=== PATIENT | female | born 1985 | race Caucasian/White ===

== ENCOUNTER 2017-09-29 17:18 | Inpatient (IN) | payer MEDICAID ==
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
[2017-09-29] MEDS ORDERED: chlordiazePOXIDE 25 MG CAP PO ONE (17:35)
[2017-09-29] MEDS ORDERED: LORazepam 1 MG TAB PO ONE (17:35)
[2017-09-29 17:58] LABS: PLATELET COUNT 294 10^3/uL (150-400)
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
--- NOTE | 2017-09-29 23:46 | ASMTTCLDSP ---
TLC Discharge Disposition Disposition: Answers: Admit Disposition Notes: Notes: In consultation with ED Physician Gabby Doyle MD and on-call Psychiatrist Esequiel Gavin MD, both concurred pt.'s appears to meet 27-65 criteria requiring inpatient psychiatric hospitalizations as pt. appears to be an imminent risk to self due to a mental condition. Pt was given [facility] prohibited belongings list while in the ED. For inpatient Esequiel Gavin admission, the following psychiatrist agreed to accept patient for admission to [facility] ([facility]): Hold initiated by: Answers: Other Notes: Assisted clincial staff. Date Signed: 09/29/2017 11:45 PM Electronically Signed By:Alysha Lance
[2017-09-30] MEDS ORDERED: MAGNESIUM HYDROXIDE 30 ML UDCUP PO PRN (00:13)
[2017-09-30] MEDS ORDERED: NICOTINE POLACRILEX 2 MG GUM B PRN (00:13)
[2017-09-30] MEDS ORDERED: MAG HYDROX/AL HYDROX/SIMETH 30 ML UDCUP PO PRN (00:13)
[2017-09-30] MEDS ORDERED: THIAMINE HCL 100 MG TAB PO ONE (00:17)
[2017-09-30] MEDS ORDERED: PROMETHAZINE HCL 25 MG SUPPR PR PRN (00:17)
[2017-09-30] MEDS ORDERED: chlordiazePOXIDE 25 MG CAP PO PRN (00:17)
[2017-09-30] MEDS ORDERED: chlordiazePOXIDE 25 MG CAP PO ONE (00:24)
[2017-09-30] MEDS: PROMETHAZINE HCL 25 MG TAB PO PRN ×2 (00:45→13:18)
[2017-09-30] MEDS: OLANZapine DISINTEGR 10 MG TAB PO PRN ×2 (00:45→22:53)
[2017-09-30] MEDS: IBUPROFEN 200 MG TAB PO PRN ×2 (00:45→13:20)
[2017-09-30] MEDS: FOLIC ACID 1 MG TAB PO SCH (09:18)
[2017-09-30] MEDS: chlordiazePOXIDE 25 MG CAP PO SCH ×3 (09:18→21:15)
[2017-09-30] MEDS: THIAMINE HCL 100 MG TAB PO SCH (09:18)
[2017-09-30] MEDS: MULTIVITAMINS 1 EACH TAB PO SCH (09:18)
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
--- NOTE | 2017-09-30 13:54 | ASMTCMCOM ---
CM Note CM Note Notes: Pt. and CC complete MTP. Pt. stated she has been from her for the past 7 months. Pt. stated HOC lives in [place]. Pt. stated she was hospitalized in August for mental health reasons. Pt. stated she normally has two jobs, but recently lost one and is in the process of trying to get it back. Pt. stated she has no place to stay and no family in state who are willing to help her. Pt. stated she was pulled off all of her medication 5 years ago and pt. started drinking to deal with her anxiety. Pt. stated she has assault and domestic violence charges and is on probation Pt. stated she has stopped all substance use because of her probation Pt. stated she has SI, "like to just end it", adding she contracts for safety. Pt. denied HI, AVH and paranoia. Pt. stated she has a history of night terrors adding "almost like hallucinating". Pt. stated she has vivid dreams and has been known to sleep walk and hit and kick in her sleep. Pt. rated her anxiety 09/14 and "sadness" 12/15. Date Signed: 09/30/2017 01:53 PM Electronically Signed By:Ceci Gonsalez
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
[2017-09-30] MEDS: hydrOXYzine HCL 25 MG TAB PO PRN ×2 (14:43→21:40)
[2017-09-30] MEDS: FLUoxetine 20 MG CAP PO SCH ×3 (14:49→21:15)
[2017-09-30] MEDS ORDERED: chlordiazePOXIDE 25 MG CAP PO SCH (16:00)
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
--- NOTE | 2017-09-30 17:53 | PDMN ---
Medical Necessity Medical necessity: Pt meets inpt criteria per MD order and [facility], Major Depressive Disorder, Adult: Inpatient Care, 3 days. Pt admitted involuntarily on M1 Hold due to being danger to herself and others, major depressive disorder , PTSD, alcohol use disorder; requires hospitalization for safety, crisis stabilization, and medication evaluation, anticipate >2MN.
[2017-09-30] MEDS: PRAZOSIN HCL 1 MG CAP PO SCH (21:15)
[2017-10-01] MEDS: FOLIC ACID 1 MG TAB PO SCH (08:43)
[2017-10-01] MEDS: chlordiazePOXIDE 25 MG CAP PO SCH ×3 (08:43→20:36)
[2017-10-01] MEDS: MULTIVITAMINS 1 EACH TAB PO SCH (08:43)
[2017-10-01] MEDS: THIAMINE HCL 100 MG TAB PO SCH (08:43)
[2017-10-01] MEDS: hydrOXYzine HCL 25 MG TAB PO PRN ×2 (08:49→13:41)
--- NOTE | 2017-10-01 11:12 | SOAPPROG ---
SOAP Progress Note Assessment/Plan: Assessment: Major depressive disorder. R/O Borderline personality disorder. No improvement noted. (see subjective/objective note). Patient is not safe to discharge at this time as patient continues to exhibit signs of severe depression, and express severe depression symptoms; expresses SI. Patient requires continued inpatient care because of current depression, and requires inpatient level of care to stabilize in order to no longer be a danger to self due to mental illness. Patient could benefit from continued inpatient hospitalization for crisis stabilization, safety, and medication evaluation. Plan: Review psychotropic medication treatment informed consent and recommendations. After reviewing options, risk and benefits, patient agrees to continue current medications. No medication changes at this time as more time is needed to determine ongoing tolerability and efficacy. Plan is to continue to observe patient for response and side effects from medications, and ongoing monitoring and evaluation. Next steps are for patient to meet with managed care nurse to plan a safe discharge plan and establish outpatient services for ongoing treatment. Consider discharge next week if patient is in stable condition, safe, and has a safe discharge plan. PSYCHOTROPIC MEDICATION TREATMENT INFORMED CONSENT and RECOMMENDATIONS: Review nature of condition, diagnosis, and prognosis. Review nature and purpose of psychotropic medication treatment. Review type of psychotropic medications being ordered. Review risk and benefits of psychotropic medication treatment. Review probable length of time patient will need to take medications. Review risk and benefits of not undergoing psychotropic medication treatment. Review alternative treatments to psychotropic medications. Review psychotropic medications contraindications, drug-drug interactions, side effects, and importance of reporting any side effects to a psychiatric provider or nurse during inpatient hospitalization, and upon discharge to patients psychiatric outpatient provider, primary care provider, or other health manager critical care. Review importance of asking a nurse, psychiatric provider, or primary care provider any questions or problems concerning the psychotropic medications. Verify patient understands the information that has been provided, and understands, accepts, and agrees to psychotropic medications. Review patients safety plan and importance of patient to report to staff while hospitalized if patient is ever a danger to self/others, or unable to care for self, and upon discharge, the importance for patient to contact [facility] or [facility], or go to the nearest emergency room, if patient is ever a danger to self/others, or unable to care for self. Recommend that upon discharge patient establish medication management treatment with a psychiatric provider, establishes routine therapy appointments, and follow-up with primary care provider. Verify patient understands and agrees to these recommendations. 10/01/17 11:14 Subjective: Following up with patient for evaluation of depression and safety. Patient reports, "I do not have anywhere to go when I leave here, I have nothing left." Patient expresses the following psychiatric symptoms: sad, hopeless, depressed. Patient does not report undesirable side effects from the medications. Patient reports appetite as normal, and reports eating all meals. Patient describes getting 10 hours of sleep. Patient reports SI, with high intent, no plan. Patient denies HI. Objective: Vital Signs Temp Pulse Resp BP Pulse Ox 37.0 C 104 H 16 117/74 97 10/01/17 06:00 10/01/17 06:00 10/01/17 06:00 10/01/17 06:00 10/01/17 06:00 NURSING REPORT: Consulted with nursing for update on patients progress in treatment. Nurses report patient is engaged in treatment, is attending groups, slept 10 hours, expresses the following psychiatric symptoms: sad, depressed mood, exhibits the following psychiatric symptoms: depressed, withdrawn, flat; is eating all meals, is taking medications as prescribed with no report of side effects, with no s/s of EPS/akathisia, and denies SI/HI, A/V hallucinations. PAROLE HEARING OFFICER UPDATE: working to set-up outpatient services for [facility] in [place], and referrals for homeless shelters. The patient is a well-nourished female looking older than chronological age. Attire is appropriate and dress is casual. Grooming status is inappropriate and disheveled. Ambulation is independent. Gait is normal and coordinated. Posture is normal and relaxed. Eye contact is inappropriate, and little. Motor activity is appropriate with purposeful, organized, coordinated movements ; with no involuntary movements. Attitude is cooperative. Patient appears attentive and relates well to this interviewer. Language production is spontaneous. R/R/V normal. Articulation is clear. Patient reports mood as sad with congruent affect. Patients thought process is linear and logical, with no loose associations, tangential thought, thought blocking, concrete thinking, or any other signs of formal thought disorder. Patient does report suicidal thoughts, ideas, or plans. Patient does not report homicidal thoughts , ideas, or plans. Patient denies auditory, visual hallucinations. Patient denies delusions. Patient does not appear to be attending to internal stimuli. Patients attention and concentration are poor. Patient is oriented to person , place, time, and situation. Patients insight is poor. Patients judgment is poor. No evidence of gross cognitive dysfunction at any point during the interview. No evidence of apparent dysfunction in recent or remote memory. - Time Spent With Patient Time Spent With Patient: 30 minutes, met with patient individually and with treatment team. - Pending Discharge Pending Discharge Within 24 Hours: No Pending Discharge Within 48 Hours: No ICD10 Worksheet Patient Problems: Problems Problem Status Onset Alcohol use disorder, severe, in controlled environment Acute Major depression Acute
--- NOTE | 2017-10-01 12:41 | ASMTCMCOM ---
CM Note CM Note Notes: The patient would prefer to return to [place] upon discharge to be with her , Juan M Shetty ([phone]). CC spoke with Juan M and he reported feeling "very concerned that there is a possibility she would discharge to the street." He reported that although he would like to participate in her care there is very little he can do from [place], apart from "quitting my job and moving here to be homeless with her." He reported that he could provide her with a "plane ticket to [place]" and "safety, halfway, and stability." He would like to be updated per her disposition. Date Signed: 10/01/2017 12:41 PM Electronically Signed By:Julianna Silveira
[2017-10-01] MEDS: IBUPROFEN 200 MG TAB PO PRN (13:41)
--- NOTE | 2017-10-01 14:10 | ASMTBHDC ---
Notes Note: Notes: Follow Up: [facility] [address] Floor, [address] [place] [address] Sunday 10/08 @ 1:00pm Dr. Bravo [address] [place] [id number] Appt: October 07 (10/07/17) at 8:30am (check in time at 8:15am) Group Therapy with Kirsten [address] [phone] Must coordinate entry to homeless [facility] prior to discharge [facility] [address] [phone] Must arrive prior to 3:30pm Date Signed: 10/01/2017 10:54 AM Electronically Signed By:Julianna Silveira
[2017-10-01] MEDS: OLANZapine DISINTEGR 10 MG TAB PO PRN (20:36)
[2017-10-01] MEDS: FLUoxetine 20 MG CAP PO SCH (20:36)
[2017-10-01] MEDS: PRAZOSIN HCL 1 MG CAP PO SCH (20:36)
[2017-10-02] MEDS: THIAMINE HCL 100 MG TAB PO SCH (08:25)
[2017-10-02] MEDS: FOLIC ACID 1 MG TAB PO SCH (08:25)
[2017-10-02] MEDS: MULTIVITAMINS 1 EACH TAB PO SCH (08:25)
[2017-10-02] MEDS: hydrOXYzine HCL 25 MG TAB PO PRN ×2 (11:54→21:32)
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
[2017-10-02] MEDS: FLUoxetine 20 MG CAP PO SCH (21:29)
[2017-10-02] MEDS: PRAZOSIN HCL 1 MG CAP PO SCH (21:29)
[2017-10-02] MEDS: OLANZapine DISINTEGR 10 MG TAB PO PRN (21:32)
[2017-10-03] MEDS: OLANZapine DISINTEGR 10 MG TAB PO PRN ×2 (06:36→20:37)
[2017-10-03] MEDS: hydrOXYzine HCL 25 MG TAB PO PRN ×3 (06:36→20:37)
--- NOTE | 2017-10-03 09:07 | ASMTCMCOM ---
CM Note CM Note Notes: Please disregard the TLC Progress Note--CC intended to complete a CM note. CC supported the patient with research regarding the civil standby process through [facility]. The patient has all the pertinent information including the phone number. Civil standbys are low priority, maximum of 20 minutes on the residence, and PO will not dispute property. The patient reported decreased suicidal ideation since being on the unit, she stated "if I were in the streets I would shoot right back up to a 10" on the suicide scale due to the anxiety and hopelessness. The patient endorsed feeling anxiety and depression. She denied A/VH and HI. Date Signed: 10/03/2017 09:07 AM Electronically Signed By:Julianna Silveira
[2017-10-03] MEDS: MULTIVITAMINS 1 EACH TAB PO SCH (12:24)
[2017-10-03] MEDS: FOLIC ACID 1 MG TAB PO SCH (12:24)
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
[2017-10-03] MEDS: FLUoxetine 20 MG CAP PO SCH (20:37)
[2017-10-03] MEDS: PRAZOSIN HCL 1 MG CAP PO SCH (20:37)
[2017-10-03] MEDS: traZODone 50 MG TAB PO PRN (22:42)
[2017-10-04] MEDS: FOLIC ACID 1 MG TAB PO SCH (08:41)
[2017-10-04] MEDS: MULTIVITAMINS 1 EACH TAB PO SCH (08:41)
--- NOTE | 2017-10-04 09:13 | SOAPPROG ---
SOAP Progress Note Assessment/Plan: Assessment: Major depressive disorder. R/O Borderline personality disorder. Improvement noted; patient no longer reporting SI or self-injurious ideation. (see subjective/objective note). Patient is not safe to discharge at this time as patient continues to exhibit signs of depression, and express depression symptoms. Patient requires continued inpatient care because of current depression, and requires inpatient level of care to stabilize in order to no longer be a danger to self due to mental illness. Patient could benefit from continued inpatient hospitalization for crisis stabilization, safety, and medication evaluation. Plan: Review psychotropic medication treatment informed consent and recommendations. After reviewing options, risk and benefits, patient agrees to continue current medications. No medication changes at this time as more time is needed to determine ongoing tolerability and efficacy. Plan is to continue to observe patient for response and side effects from medications, and ongoing monitoring and evaluation. Next steps are for patient to meet with childcare center director to plan a safe discharge plan and establish outpatient services for ongoing treatment. Consider discharge Wednesday if patient is in stable condition, safe, and has a safe discharge plan. PSYCHOTROPIC MEDICATION TREATMENT INFORMED CONSENT and RECOMMENDATIONS: Review nature of condition, diagnosis, and prognosis. Review nature and purpose of psychotropic medication treatment. Review type of psychotropic medications being ordered. Review risk and benefits of psychotropic medication treatment. Review probable length of time patient will need to take medications. Review risk and benefits of not undergoing psychotropic medication treatment. Review alternative treatments to psychotropic medications. Review psychotropic medications contraindications, drug-drug interactions, side effects, and importance of reporting any side effects to a psychiatric provider or nurse during inpatient hospitalization, and upon discharge to patients psychiatric outpatient provider, primary care provider, or other health veterinarian laboratory animal care. Review importance of asking a nurse, psychiatric provider, or primary care provider any questions or problems concerning the psychotropic medications. Verify patient understands the information that has been provided, and understands, accepts, and agrees to psychotropic medications. Review patients safety plan and importance of patient to report to staff while hospitalized if patient is ever a danger to self/others, or unable to care for self, and upon discharge, the importance for patient to contact [facility] or [facility], or go to the nearest emergency room, if patient is ever a danger to self/others, or unable to care for self. Recommend that upon discharge patient establish medication management treatment with a psychiatric provider, establishes routine therapy appointments, and follow-up with primary care provider. Verify patient understands and agrees to these recommendations. 10/04/17 09:16 Subjective: Following up with patient for evaluation of depression and safety. Patient reports, "Making progress in regard to my plans for the next couple weeks after discharging." Patient expresses the following psychiatric symptoms: moderate anxiety, sadness. Patient reports, "Medications are helping." Patient reports good response from Zyprexa Zydis 5 mg po HS for sleep and depression symptoms. Patient does not report undesirable side effects from the medications. Patient reports appetite as normal, and reports eating all meals. Patient describes getting 10 hours of sleep. Patient denies no SI/HI. Patient requests discharge this week. Patient describes plan to eventually move to [place] where her currently resides. Objective: Vital Signs Temp Pulse Resp BP Pulse Ox 36.4 C 80 14 105/64 96 10/04/17 06:00 10/04/17 06:00 10/04/17 06:00 10/04/17 06:00 10/04/17 06:00 NURSING REPORT: Consulted with nursing for update on patients progress in treatment. Nurses report patient is engaged in treatment, is attending groups, slept 10 hours, expresses the following psychiatric symptoms: sad, depressed mood, exhibits the following psychiatric symptoms: depressed and anxious; is eating all meals, attending to ADLs, is taking medications as prescribed with no report of side effects, with no s/s of EPS/akathisia, and denies SI/HI, denies A/V hallucinations, and denies delusions. 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 REPORT: No w/d sxs. Off Librium. Can d/c [facility]. Patient requested to d/c so she can meet with PO and public relations account executive. Patients in [place] wants her to join him there in rehab. The patient is a well-nourished female looking older than chronological age. Attire is appropriate and dress is casual. Grooming status is inappropriate and disheveled. Ambulation is independent. Gait is normal and coordinated. Posture is normal and relaxed. Eye contact is inappropriate, and little. Motor activity is appropriate with purposeful, organized, coordinated movements ; with no involuntary movements. Attitude is cooperative. Patient appears attentive and relates well to this interviewer. Language production is spontaneous. R/R/V normal. Articulation is clear. Patient reports mood as anxious and sad with congruent affect. Patients thought process is linear and logical, with no loose associations, tangential thought, thought blocking, concrete thinking, or any other signs of formal thought disorder. Patient does not report suicidal thoughts, ideas, or plans. Patient does not report homicidal thoughts, ideas, or plans. Patient denies auditory, visual hallucinations. Patient denies delusions. Patient does not appear to be attending to internal stimuli. Patients attention and concentration are poor. Patient is oriented to person, place, time, and situation. Patients insight is poor. Patients judgment is poor. No evidence of gross cognitive dysfunction at any point during the interview. No evidence of apparent dysfunction in recent or remote memory. - Time Spent With Patient Time Spent With Patient: 30 minutes, met with patient individually. - Pending Discharge Pending Discharge Within 24 Hours: No Pending Discharge Within 48 Hours: No ICD10 Worksheet Patient Problems: Problems Problem Status Onset Alcohol use disorder, severe, in controlled environment Acute Major depression Acute Post traumatic stress disorder (PTSD) Acute
[2017-10-04] MEDS: hydrOXYzine HCL 25 MG TAB PO PRN ×2 (10:52→21:16)
--- NOTE | 2017-10-04 11:04 | ASMTCMCOM ---
CM Note CM Note Notes: Pt. reports feeling "okay". Pt. stated she "ended up having to take a trazodone to sleep". Pt. reports feeling groggy this morning, adding "hard time coming out of it". Pt. stated "Zyprexa seems to be working", adding it helps with her "panicy thoughts". Pt. stated she is not having night terrors or sweating profusely at night. Pt. stated she has been trying to attend groups. Pt. stated she has been able to start eating again. Pt. stated she has lost 10lbs in the past month, unintentionally. Pt. reports having an eating disorder in the past. Pt. denied HI, AVH and paranoia. Pt. stated she has low SI, adding the medications she is on decrease SI thoughts. Pt. stated she has been speaking with [facility] and trying to make a plan for the next couple months. Pt. stated she has court on 11/18/17. Pt. stated upon discharge she will get her important documents from her home with a training and development officer and then check herself into custodial. Pt. stated she can't pay for supervised probation, is homeless, and doesn't want to get into any more trouble as the reason she is checking herself into custodial. Pt. presents as calm, sleepy, with a mostly pleasant demeanor, good eye contact, and a bit malodorous Date Signed: 10/04/2017 10:59 AM Electronically Signed By:Ceci Gonsalez
[2017-10-04] MEDS: OLANZapine DISINTEGR 10 MG TAB PO PRN ×2 (13:10→21:16)
--- NOTE | 2017-10-04 13:28 | SOAPPROG ---
SOAP Progress Note Assessment/Plan: Assessment: Dermatitis, unclear etiology. May be due to dry skin. Has responded to a topical lotion. It is not consistent with eczema or psoriasis, and her history , especially lack of itch, is not consistent with scabies. Continue current treatment with topical lotion. Alcoholic hepatitis. She denies history of IV drug abuse and reports extensive testing in the recent past which ruled out viral hepatitis. Encourage sobriety. She should have repeat labs as an outpatient assuming she is able to abstain from alcohol. Dyslipidemia. Currently at low risk for stroke or coronary artery disease due to her young age. No indication for statin. 10/04/17 13:36 Subjective: Asked to see patient regarding rash. She describes a flaky rash on her forearms and hands including the finger web spaces. She reports she has been using a skin lotion and has been improving. It does not itch. She notes that her domestic partner has a skin condition as well. She denies any history of IV drug abuse. She also reports that the sutures in her left forearm are due to be removed. Objective: Vital Signs Temp Pulse Resp BP Pulse Ox 36.4 C 80 14 105/64 96 10/04/17 06:00 10/04/17 06:00 10/04/17 06:00 10/04/17 06:00 10/04/17 06:00 Physical Exam - Physical Exam General Appearance: WD/WN, alert, no apparent distress Respiratory: No respiratory distress, No accessory muscle use Skin: normal color, warm/dry, rash (Multiple flesh-colored papules approximately 1 mm each especially over extensor surface of right forearm and in finger web spaces.), other (Sutured laceration on the palmar aspect of the left forearm. Approximately 1.5 cm. No dehiscence, erythema or drainage.) ICD10 Worksheet Patient Problems: Problems Problem Status Onset Alcohol use disorder, severe, in controlled environment Acute Major depression Acute Post traumatic stress disorder (PTSD) Acute
[2017-10-04] MEDS: PRAZOSIN HCL 1 MG CAP PO SCH (21:16)
[2017-10-04] MEDS: FLUoxetine 20 MG CAP PO SCH (21:16)
[2017-10-04] MEDS: traZODone 50 MG TAB PO PRN (22:19)
[2017-10-05] MEDS: MELATONIN 3 MG TAB PO PRN ×2 (00:22→22:57)
[2017-10-05] MEDS: FOLIC ACID 1 MG TAB PO SCH (08:18)
[2017-10-05] MEDS: MULTIVITAMINS 1 EACH TAB PO SCH (08:18)
--- NOTE | 2017-10-05 08:41 | SOAPPROG ---
SOAP Progress Note Assessment/Plan: Assessment: Major depressive disorder. R/O Borderline personality disorder. Improvement noted; patient no longer reporting SI or self-injurious ideation; less depression; less anxiety. (see subjective/objective note). Patient could benefit from continued inpatient hospitalization for observation of safety and medication evaluation. Patient is not safe to discharge at this time as patient continues to exhibit signs of depression, and express depression symptoms. Patient requires continued inpatient care because of current depression, and requires inpatient level of care to stabilize in order to no longer be a danger to self due to mental illness. To ensure continuity of care , plan to discharge tomorrow for patient to attend OP appointment on morning. Plan: Review psychotropic medication treatment informed consent and recommendations. After reviewing options, risk and benefits, patient agrees to continue current medications and to schedule Zyprexa Zydis 10 mg po QHS; stop Trazodone 50 mg po QHS PRN. No other medication changes at this time as more time is needed to determine ongoing tolerability and efficacy. Plan is to continue to observe patient for response and side effects from medications, and ongoing monitoring and evaluation. Next steps are for patient to meet with home care provider to plan a safe discharge plan and establish outpatient services for ongoing treatment. Consider discharge Wednesday if patient is in stable condition, safe, and has a safe discharge plan. PSYCHOTROPIC MEDICATION TREATMENT INFORMED CONSENT and RECOMMENDATIONS: Review nature of condition, diagnosis, and prognosis. Review nature and purpose of psychotropic medication treatment. Review type of psychotropic medications being ordered. Review risk and benefits of psychotropic medication treatment. Review probable length of time patient will need to take medications. Review risk and benefits of not undergoing psychotropic medication treatment. Review alternative treatments to psychotropic medications. Review psychotropic medications contraindications, drug-drug interactions, side effects, and importance of reporting any side effects to a psychiatric provider or nurse during inpatient hospitalization, and upon discharge to patients psychiatric outpatient provider, primary care provider, or other health home care provider. Review importance of asking a nurse, psychiatric provider, or primary care provider any questions or problems concerning the psychotropic medications. Verify patient understands the information that has been provided, and understands, accepts, and agrees to psychotropic medications. Review patients safety plan and importance of patient to report to staff while hospitalized if patient is ever a danger to self/others, or unable to care for self, and upon discharge, the importance for patient to contact [facility] or 911, or go to the nearest emergency room, if patient is ever a danger to self/others, or unable to care for self. Recommend that upon discharge patient establish medication management treatment with a psychiatric provider, establishes routine therapy appointments, and follow-up with primary care provider. Verify patient understands and agrees to these recommendations. 10/05/17 08:40 Subjective: Following up with patient for evaluation of depression and safety. Patient expresses the following psychiatric symptoms: mild anxiety; moderate depression. Patient reports, "Medication at night is helping a little, could we increase the dose?" Patient agrees to Zyprexa Zydis 10 mg po QHS for refractory depression and insomnia related to depression. Patient does not report undesirable side effects from the medications. Patient reports appetite as normal, and reports eating all meals. Patient describes getting 10 hours of sleep. Patient denies SI/HI. Patient requests discharge tomorrow, and plans to attend her OP appointment on morning. Patient describes plan to eventually move to [place] where her currently resides. Objective: Vital Signs Temp Pulse Resp BP Pulse Ox 36.9 C 73 14 95/57 L 96 10/05/17 06:00 10/05/17 06:00 10/05/17 06:00 10/05/17 06:00 10/05/17 06:00 NURSING REPORT: Consulted with nursing for update on patients progress in treatment. Nurses report patient is engaged in treatment, is attending groups, slept 10 hours, expresses the following psychiatric symptoms: sad, depressed mood, exhibits the following psychiatric symptoms: depressed and anxious; is eating all meals, is taking medications as prescribed with no report of side effects, with no s/s of EPS/akathisia, and denies SI/HI, denies A/V hallucinations, and denies delusions. CHARGER TESTER UPDATE: working to set-up outpatient services for [facility] in [place]. The patient is a well-nourished female looking older than chronological age. Attire is appropriate and dress is casual. Grooming status is inappropriate and disheveled. Ambulation is independent. Gait is normal and coordinated. Posture is normal and relaxed. Eye contact is appropriate. Motor activity is appropriate with purposeful, organized, coordinated movements; with no involuntary movements. Attitude is cooperative. Patient appears attentive and relates well to this interviewer. Language production is spontaneous. R/R/V normal. Articulation is clear. Patient reports mood as okay with congruent affect. Patients thought process is linear and logical, with no loose associations, tangential thought, thought blocking, concrete thinking, or any other signs of formal thought disorder. Patient does not report suicidal thoughts, ideas, or plans. Patient does not report homicidal thoughts, ideas, or plans. Patient denies auditory, visual hallucinations. Patient denies delusions. Patient does not appear to be attending to internal stimuli. Patients attention and concentration are poor. Patient is oriented to person, place, time, and situation. Patients insight is poor. Patients judgment is poor. No evidence of gross cognitive dysfunction at any point during the interview. No evidence of apparent dysfunction in recent or remote memory. - Time Spent With Patient Time Spent With Patient: 15 minutes, met with patient individually. - Pending Discharge Pending Discharge Within 24 Hours: Yes Pending Discharge Within 48 Hours: No Pending Discharge Date: 10/06/17 Pending Discharge Time: 11:00 ICD10 Worksheet Patient Problems: Problems Problem Status Onset Alcohol use disorder, severe, in controlled environment Acute Major depression Acute Post traumatic stress disorder (PTSD) Acute
[2017-10-05] MEDS: OLANZapine DISINTEGR 5 MG TAB PO PRN (13:34)
--- NOTE | 2017-10-05 14:53 | ASMTCMCOM ---
CM Note CM Note Notes: Pt. reports feeling "okay". Pt. stated she is "accepting my fate to come". Pt. stated she is "stressed about getting back what little I have back". Pt. stated her treatment team meeting went well. Pt. stated stated she likes her current medications but stated "don't want to be on indefinatly". Pt. stated her night terror medication is helping. Pt. denied SI, HI, AVH and paranoia. Pt. and CC discussed her discharge plan in detail. Pt. presents as alert, calm, with good eye contact, with a mostly pleasant demeanor, and having good insight. Date Signed: 10/05/2017 01:23 PM Electronically Signed By:Ceci Gonsalez
[2017-10-05 19:27] VITALS: BP 118/75
[2017-10-05] MEDS: FLUoxetine 20 MG CAP PO SCH (20:35)
[2017-10-05] MEDS: PRAZOSIN HCL 1 MG CAP PO SCH (20:35)
[2017-10-05] MEDS ORDERED: OLANZapine DISINTEGR 10 MG TAB PO SCH (21:00)
[2017-10-05] MEDS ORDERED: OLANZapine DISINTEGR 5 MG TAB PO SCH (21:00)
[2017-10-05] MEDS: hydrOXYzine HCL 25 MG TAB PO PRN (22:56)
[2017-10-06] MEDS: MULTIVITAMINS 1 EACH TAB PO SCH (08:55)
[2017-10-06] MEDS: OLANZapine DISINTEGR 5 MG TAB PO PRN (08:55)
[2017-10-06] MEDS: hydrOXYzine HCL 25 MG TAB PO PRN (08:55)
[2017-10-06] MEDS: FOLIC ACID 1 MG TAB PO SCH (09:13)
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
== END 2017-10-06 09:25 | disposition home or self-care (01) | DRG 885 ==
LOC: BBEH 09-30
PROVIDERS: ADMIT Psychiatry & Neurology Psychiatry; ATTEND Psychiatry & Neurology Psychiatry
DX: F33.2 Major depressive disorder, recurrent severe without psychotic features (principal); F43.10 Post-traumatic stress disorder, unspecified; F10.239 Alcohol dependence with withdrawal, unspecified; E87.2 Acidosis
CPT/HCPCS: 80305; G0480

== ENCOUNTER 2017-12-17 18:05 | Emergency (ER) | payer MEDICAID, OTHER ==
[2017-12-17 18:15] VITALS: BP 135/92
--- NOTE | 2017-12-17 18:31 | EDPHY ---
H & P Stated Complaint: c/o anxiety/poss etoh wd Time Seen by Provider: 12/17/17 18:29 - Personal History Tetanus Vaccine Date: 2009 - Medical/Surgical History Hx Asthma: Yes Hx Chronic Respiratory Disease: No Hx Diabetes: No Hx Cardiac Disease: No Hx Renal Disease: No Hx Cirrhosis: No Hx Alcoholism: Yes Hx HIV/AIDS: No Hx Splenectomy or Spleen Trauma: No Other PMH: pmh- panic/anxiety/depression, asthma, etoh abuse. psh- eye surgery ; hx MRSA, hz sz age 6 from fever - Social History Smoking Status: Never smoked Constitutional: Initial Vital Signs Temperature (C) 37.2 C 12/17/17 18:10 Heart Rate 104 H 12/17/17 18:10 Respiratory Rate 18 12/17/17 18:10 Blood Pressure 135/92 H 12/17/17 18:10 O2 Sat (%) 93 12/17/17 18:10 O2 Delivery Mode Room Air Allergies/Adverse Reactions: acetaminophen [From Tylenol] Allergy (Verified 12/17/17 18:16) amoxicillin Allergy (Verified 12/17/17 18:16) metronidazole [From Flagyl] Allergy (Verified 12/17/17 18:16) Home Medications: Medication Instructions Recorded FLUoxetine [Prozac 20 MG (*)] 40 mg PO DAILY 09/30/17 Multivitamins [Multivitamin (*)] 1 each PO DAILY 09/30/17 hydrOXYzine HCL [Vistaril 50MG 50 mg PO Q6 PRN 09/30/17 (RX)] Folic Acid [Folic Acid 1 MG (*)] 1 mg PO DAILY tab 10/06/17 Melatonin [Melatonin 3 MG (*)] 3 - 6 mg PO HS PRN tab 10/06/17 OLANZapine [Zyprexa] 10 mg PO HS 30 Days #30 tablet 10/06/17 Prazosin HCl [Minipress 1mg (*)] 1 mg PO HS 30 Days #30 cap 10/06/17 Abilify 12/17/17 Adderall 10 MG (*) 12/17/17 Medical Decision Making ED Course/Re-evaluation: CHIEF COMPLAINT: Alcohol intoxication. HISTORY OF PRESENT ILLNESS: The patient is a chronic alcoholic living on the [address]. Patient drinks on a daily basis and obtains whatever alcohol is available. Patient was found by bystanders who called EMS system. Patient has had multiple ER visits over the last several years for the same complaint. Patient denies any injuries denies loss of consciousness denies any recent trauma. Patient denies co-ingestion. Patient denies suicidal or homicidal behavior. REVIEW OF SYSTEMS: A comprehensive 10 system review of systems is otherwise negative aside from elements mentioned in the history of present illness and medical decision making. PHYSICAL EXAM: General Appearance: Alert, well hydrated, appropriate, and non-toxic appearing. Head: Atraumatic without scalp tenderness or obvious injury Eyes: Pupils equal, round, reactive to light and accommodation, EOMI, no trauma , no injection. Ears: Clear bilaterally, no perforation, normal landmarks Nose: Atraumatic, no rhinorrhea, clear. Throat: There is no erythema or exudates, no lesions, normal tonsils, mucus membranes moist. Neck: Supple, 2+ carotid upstroke, nontender, no lymphadenopathy. Respiratory: No retractions, no distress, no wheezes, and no accessory muscle use. Lungs are clear to auscultation bilaterally. Cardiovascular: Regular rate and rhythm, no murmurs, rubs, or gallops. Bilateral carotid, radial, dorsalis pedis, and posterior tibial pulses intact. Good capillary refill all extremities. Gastrointestinal: Abdomen is soft, nontender, non-distended, no masses, no rebound, no guarding, no peritoneal signs. Musculoskeletal: Normal active ROM of all extremities, atraumatic. Neurological: Alert, appropriate, and interactive. The patient has normal DTRs and non-focal cranial nerves, motor, sensory, and cerebellar exam. Skin: No rashes, good turgor, no nodules on palpation. PAST MEDICAL HISTORY: Alcohol abuse PAST SURGICAL HISTORY: Noncontributory SOCIAL HISTORY: Chronic alcoholic, denies drug or tobacco abuse, single DIFFERENTIAL DIAGNOSIS: Includes but is not limited to alcohol abuse, alcohol intoxication come MEDICAL DECISION MAKING: I serially examined this patient since the patient's arrival here in the emergency department. The patient continues to become more and more sober with each examination. I serially questioned the patient and the patient's story given initially has not changed. The patient still denies any trauma, any head injury, and any illicit drug use. At this point, the patient is walking the department freely and is clinically sober. We're discharging the patient to the [facility] in stable condition. Departure - Departure Disposition: Home, Routine, Self-Care Clinical Impression: Alcoholic intoxication Qualifiers: Complication of substance-induced condition: uncomplicated Qualified Code(s): F10.920 - Alcohol use, unspecified with intoxication, uncomplicated Instructions: Alcohol Intoxication (ED) Additional Instructions: Go directly to the [facility] for detox. Follow up with your primary care provider as needed. Referrals: NONE *PRIMARY CARE P,. [Primary Care Provider] - As per Instructions [facility],. [Clinic] - As per Instructions [facility] Detox 24 Hours [Outside] - As per Instructions
[2017-12-17] MEDS ORDERED: CHLORDIAZEPOXIDE 25MG PREPK#6 BTL TAKEHOME ONE ×2 (18:34→18:37)
== END 2017-12-17 18:58 | disposition home or self-care (01) ==
DX: F10.229 Alcohol dependence with intoxication, unspecified (principal)

== ENCOUNTER 2017-12-18 17:42 | Emergency (ER) | payer MEDICAID, OTHER ==
[2017-12-18 17:49] VITALS: BP 124/92
[2017-12-18] MEDS ORDERED: CHLORDIAZEPOXIDE 25MG PREPK#6 BTL TAKEHOME ONE (18:11)
--- NOTE | 2017-12-18 18:11 | EDPHY ---
H & P Stated Complaint: [facility] Time Seen by Provider: 12/18/17 18:11 HPI/ROS: CHIEF COMPLAINT: "I think I had a seizure" HISTORY OF PRESENT ILLNESS: 32-year-old female with alcoholism presents with a possible seizure. She was sleeping behind a store this afternoon and thinks that she had a seizure. Unwitnessed and no injuries. EMS was called and she was alert and oriented on scene. No urinary incontinence and she was not postictal. No prior history of seizure disorder or alcohol withdrawal seizure. REVIEW OF SYSTEMS: complete 10 point ROS reviewed and is negative except for the noted elements in the HPI - Personal History Current Tetanus/Diphtheria Vaccine: Yes Tetanus Vaccine Date: 2009 - Medical/Surgical History Hx Asthma: Yes Hx Chronic Respiratory Disease: No Hx Diabetes: No Hx Cardiac Disease: No Hx Renal Disease: No Hx Cirrhosis: No Hx Alcoholism: Yes Hx HIV/AIDS: No Hx Splenectomy or Spleen Trauma: No Other PMH: pmh- panic/anxiety/depression, asthma, etoh abuse. psh- eye surgery ; hx MRSA, hz sz age 6 from fever - Social History Smoking Status: Never smoked Alcohol Use: Heavy Additional Social History: Homeless - Physical Exam Exam: General Appearance: Alert, pleasant, slurred speech Eyes: Pupils equal and round, no conjunctival pallor or injection ENT, Mouth: Mucous membranes moist Neck: Normal inspection Respiratory: Lungs are clear to auscultation Cardiovascular: Regular rate and rhythm Gastrointestinal: Abdomen is soft and nontender Neurological: A&O, nonfocal, steady gait Skin: Warm and dry, no rash Extremities: Nontender, no pedal edema Psychiatric: Mood and affect normal Constitutional: Initial Vital Signs Temperature (C) 36.8 C 12/18/17 17:47 Heart Rate 111 H 12/18/17 17:47 Respiratory Rate 16 12/18/17 17:47 Blood Pressure 124/92 H 12/18/17 17:47 O2 Sat (%) 95 12/18/17 17:47 O2 Delivery Mode Room Air Allergies/Adverse Reactions: acetaminophen [From Tylenol] Allergy (Verified 12/17/17 18:16) amoxicillin Allergy (Verified 12/17/17 18:16) metronidazole [From Flagyl] Allergy (Verified 12/17/17 18:16) Home Medications: Medication Instructions Recorded FLUoxetine [Prozac 20 MG (*)] 40 mg PO DAILY 09/30/17 Multivitamins [Multivitamin (*)] 1 each PO DAILY 09/30/17 hydrOXYzine HCL [Vistaril 50MG 50 mg PO Q6 PRN 09/30/17 (RX)] Folic Acid [Folic Acid 1 MG (*)] 1 mg PO DAILY tab 10/06/17 Melatonin [Melatonin 3 MG (*)] 3 - 6 mg PO HS PRN tab 10/06/17 OLANZapine [Zyprexa] 10 mg PO HS 30 Days #30 tablet 10/06/17 Prazosin HCl [Minipress 1mg (*)] 1 mg PO HS 30 Days #30 cap 10/06/17 Abilify 12/17/17 Adderall 10 MG (*) 12/17/17 Medical Decision Making ED Course/Re-evaluation: I doubt this patient had a seizure. This was an unwitnessed episode and she has no history of seizure disorder. No history of head injury and no prior alcohol withdrawal seizure. She is currently intoxicated, with a breathalyzer level of greater than 300. She was discharged to the [facility] with a prepack of Librium. Differential Diagnosis: Altered mental status including but not limited to seizure, hypoglycemia, infectious process, electrolyte abnormality, and intoxicants. - Data Points Medications Given: Discontinued Medications Chlordiazepoxide (Librium 25 Mg Prepack#6) 1 btl TAKEHOME EDNOW ONE Stop: 12/18/17 18:12 Last Admin: 12/18/17 18:16 Dose: 1 btl Departure - Departure Disposition: Home, Routine, Self-Care Clinical Impression: Alcohol intoxication Qualifiers: Complication of substance-induced condition: uncomplicated Qualified Code(s): F10.920 - Alcohol use, unspecified with intoxication, uncomplicated Condition: Good Instructions: Alcohol Intoxication (ED) Additional Instructions: Librium 1-2 tablets every 6 hr as needed for alcohol withdrawal. Referrals: [facility] Detox 24 Hours [Outside] - As per Instructions
== END 2017-12-18 18:27 | disposition home or self-care (01) ==
LOC: EDUNIT# → EDBD
DX: F10.920 Alcohol use, unspecified with intoxication, uncomplicated (principal); Y90.8 Blood alcohol level of 240 mg/100 ml or more; Z59.0 Homelessness

== ENCOUNTER 2018-01-20 09:59 | Inpatient (IN) | payer MEDICAID, OTHER ==
[2018-01-20 11:44] LABS: PLATELET COUNT 301 10^3/uL (150-400)
[2018-01-20] MEDS ORDERED: LORazepam 2 MG/ML INJ IVP PRN (12:11)
[2018-01-20] MEDS ORDERED: LORazepam 1 MG TAB PO PRN (12:11)
[2018-01-20] MEDS ORDERED: LORazepam 2 MG/ML INJ IVP ONE (12:49)
--- NOTE | 2018-01-20 15:58 | EDPHY ---
H & P Stated Complaint: SI. Painful urination. - Personal History LMP (Females 10-55): 8-14 Days Ago Current Tetanus Diphtheria and Acellular Pertussis (TDAP): Yes Tetanus Vaccine Date: 2009 - Medical/Surgical History Hx Asthma: Yes Hx Chronic Respiratory Disease: No Hx Diabetes: No Hx Cardiac Disease: No Hx Renal Disease: No Hx Cirrhosis: No Hx Alcoholism: Yes Hx HIV/AIDS: No Hx Splenectomy or Spleen Trauma: No Other PMH: pmh- panic/anxiety/depression, asthma, etoh abuse. psh- eye surgery ; hx MRSA, hz sz age 6 from fever - Social History Smoking Status: Never smoked Time Seen by Provider: 01/20/18 10:32 HPI/ROS: CLINICAL IMPRESSION: Suicidal ideations, dysuria ASSESSMENT/PLAN: 32-year-old female with a past medical history of suicidal ideations, depression , anxiety, presents to the emergency department reportedly feeling suicidal without a plan. Patient has had several attempts at suicide in the past, mostly with cutting behavior, but states she has been"unsuccessful". She has had 4 prior hospitalizations for suicidal ideations. She currently has no access to firearms or knives. She is living in a homeless intermediate with her . Patient is here voluntarily and has been cooperative during ED stay. She is intoxicated with a breath alcohol of 229, non tremulous with no signs of alcohol withdrawal. Abdomen soft with no focal peritoneal findings, no signs of severe dehydration. No clinical signs of urinary tract infection, pyelonephritis, Trichomonas, BV, Kenzie. STD testing pending. Patient is not . She was otherwise medically cleared. She is followed primarily by [facility] at of lung months. Pending sobriety, patient will be evaluated by [facility]. CIWA protocol initiated, patient received 0.5 mg of Ativan for reported mild agitation. No history of alcohol withdrawal seizures. Patient is stable at time of sign-out to Dr. Penn at 5:00 p.m. Pending formal psych eval. DIFFERENTIAL DX: Differential diagnosis includes but not limited to urinary tract infection, pyelonephritis, bacterial vaginosis, vaginal candidiasis, urethritis, , acute toxidrome, dehydration, metabolic disturbance, intoxication, suicidal ED COURSE: Case discussed with Dr. Penn at 5:03 p.m. Patient stable. EKG read by ECHO BarreraR, no ST/T wave abnormality CHIEF COMPLAINT: Feeling suicidal, painful urination HPI: 32-year-old female with a past medical history of depression, anxiety, previous suicide attempts, and recent dysuria presents to the emergency department today with complaints of feeling suicidal without a plan associated with painful urination. Patient has a past medical history of Bartholin gland cyst, last drained in August. She also has a history of frequent UTIs. She had a new sexual partner approximately 10 months ago but had STD testing since that time. She reports abnormal vaginal discharge as well as burning with urination. No vaginal swelling. No fevers or chills. Bowel habits have been normal. No associated vomiting. Patient is current homeless, living in the intermediate with her , works at [employer]. Prior suicide attempts were with cutting behavior to the left arm. She states she does not have access to knives or firearms. She is primarily managed with [facility] out of [place] and does see a therapist up there as well. She admits to drinking alcohol regularly and did drink today. She admits to having problems with alcohol withdrawal but has never had alcohol withdrawal seizures. She is prescribed Prozac but has not taken this in over a month due to concerns for weight gain. She is otherwise compliant with her other medications. PMH: Depression, anxiety, alcohol abuse, distant history of asthma Pertinent Past Surgical History: Previous bartholin gland cyst Family History: Estranged from her mother Social History: Homeless, lives in homeless intermediate, , abuses alcohol, previous psychiatric admissions related to suicidal ideation ROS: All other systems negative Constitutional: No fever, no chills, appetite change. Eyes: No discharge, vision change ENT: No sore throat, congestion, ear pain. Cardiovascular: No chest pain, no palpitations. Respiratory: No cough, no shortness of breath. Gastrointestinal: No abdominal pain, no vomiting, diarrhea. Genitourinary: No hematuria Musculoskeletal: No back pain, joint swelling, joint pain, myalgias. Skin: No rashes, color change. Neurological: No headache, dizziness, weakness. PHYSICAL EXAM: General Appearance: Alert, oriented, appropriate, cooperative, NAD, well hydrated, non-toxic appearing, VSS, no hypoxia. HEENT: TMs are clear bilaterally no perforation or FB, no injection, no evidence of serous or mucopurulent otitis. Oropharynx clear is no erythema or exudates, no tonsillar hypertrophy or asymmetry. Dentition without abnormality. Neck: Supple, nontender, no lymphadenopathy, no midline pain, FROM, no meningismus. Respiratory: There are no retractions, lungs are clear to auscultation. Cardiac: Regular rate and rhythm, no murmurs or gallops. Gastrointestinal: Abdomen is soft, nontender, bowel sounds normal, no masses/ hernia, no rigidity, guarding or focal peritoneal findings. Genitourinary: No abnormal findings on vulva to suggest Bartholin gland cyst. Tender to pelvic exam and speculum exam. White discharge noted. No cervical friability or obvious polyp or mass. No vaginal bleeding. No foul smell. Adnexa without tenderness Neurological: Alert and oriented x 3, CN 2-12 grossly intact, normal gait no ataxia, DTR's intact, normal sensation and strength Skin: Warm, dry, no rashes, no nodules on palpation. Musculoskeletal: Extremities are symmetrical, full range of motion, no tenderness, deformity, swelling, or erythema. Psychiatric: Patient is oriented X 3, there is no agitation, cooperative, not tremulous, admits to feeling suicidal but does not have a plan. Denies homicidal ideation. Denies visual and auditory hallucinations. MEDICAL DECISION MAKING: Patient was seen independently by established practice protocols. Secondary supervising physician at time of evaluation was Dr. Fili Barrera. Diagnosis: Dysuria, suicidal ideation. New, requires workup Summary: See Assessment and Plan for summary of ED visit Clinical lab tests: ordered / reviewed. Decision to obtain medical records or history from someone other than the patient: [facility] provider Dr. Fili Abdul Review / Summarize previous medical records: See above Discussed patient with another provider: [facility], Dr. Fili Kelley Patient Progress: Stable at time of sign-out. (Carli,Cristo N) Constitutional: Initial Vital Signs Temperature (C) 37.1 C 01/20/18 10:01 Heart Rate 135 H 01/20/18 10:01 Respiratory Rate 18 01/20/18 10:01 Blood Pressure 162/93 H 01/20/18 10:01 O2 Sat (%) 96 01/20/18 10:01 O2 Delivery Mode Room Air Allergies/Adverse Reactions: acetaminophen [From Tylenol] Allergy (Verified 12/17/17 18:16) amoxicillin Allergy (Verified 12/17/17 18:16) metronidazole [From Flagyl] Allergy (Verified 12/17/17 18:16) Home Medications: Medication Instructions Recorded FLUoxetine [Prozac 20 MG (*)] 40 mg PO DAILY 09/30/17 hydrOXYzine HCL [Vistaril 50MG 50 mg PO Q6 PRN 09/30/17 (RX)] Prazosin HCl [Minipress 1mg (*)] 1 mg PO HS 30 Days #30 cap 10/06/17 ARIPiprazole [Abilify 2 mg (*)] 2 mg PO DAILY 01/20/18 Amphet Asp and D/Amphet [Adderall 20 mg PO BID@08,12 01/20/18 20 mg (*)] Ibuprofen [Motrin (*)] 200 - 400 mg PO DAILY PRN 01/20/18 Medical Decision Making ED Course/Re-evaluation: 2122: This patient has been accepted at [address] [place] [address] Hi[address] EMTALA filled out. Appropriate transfer will be set up. (Jules Penn) Other Provider: 12-lead EKG interpreted by me; official reading is in computer system. My interpretation is sinus tachycardia 108, low precordial voltage. Signed out to Dr. Penn at 4:30 p.m., mental health evaluation in progress for this 32-year-old woman who presents intoxicated but has depression with suicidal ideation on arrival. (Adrián Cardenas) - Data Points Laboratory Results: Laboratory Results 01/20/18 11:36 01/20/18 11:36 01/20/18 01/20/18 01/20/18 12:00 12:00 11:36 WBC RBC Hgb Hct MCV MCH MCHC RDW Plt Count MPV Neut % (Auto) Lymph % (Auto) Gage % (Auto) Eos % (Auto) Baso % (Auto) Nucleat RBC Rel Count Absolute Neuts (auto) Absolute Lymphs (auto) Absolute Monos (auto) Absolute Eos (auto) Absolute Basos (auto) Absolute Nucleated RBC Immature Gran % Immature Gran # Sodium Potassium Chloride Carbon Dioxide Anion Gap BUN Creatinine Estimated GFR Glucose Calcium Beta HCG, Qual NEGATIVE Urine Color Urine Appearance Urine pH Ur Specific [place] Urine Protein Urine Ketones Urine Blood Urine Nitrate Urine Bilirubin Urine Urobilinogen Ur Leukocyte Esterase Urine RBC Urine WBC Ur Epithelial Cells Urine Bacteria Hyaline Casts Urine Mucus Urine Glucose Trichomonas (Wet Prep) NO YEAST Salicylates Urine Opiates Screen Acetaminophen Urine Barbiturates Ur Phencyclidine Scrn Ur Amphetamine Screen U Benzodiazepines Scrn Urine Cocaine Screen U Marijuana (THC) Screen Kenzie species DNA NEGATIVE (NEGATIVE) C.trachomatis RNA (TMA) Pending Gardnerella DNA Probe NEGATIVE (NEGATIVE) N.gonorrhoeae RNA (TMA) Pending Trichomonas DNA Probe NEGATIVE (NEGATIVE) 01/20/18 01/20/18 01/20/18 11:36 11:36 10:30 WBC 9.28 10^3/uL 10^3/uL (3.80-9.50) RBC 4.29 10^6/uL 10^6/uL (4.18-5.33) Hgb 13.8 g/dL g/dL (12.6-16.3) Hct 40.8 % % (38.0-47.0) MCV 95.1 fL fL (81.5-99.8) MCH 32.2 pg pg (27.9-34.1) MCHC 33.8 g/dL g/dL (32.4-36.7) RDW 12.6 % % (11.5-15.2) Plt Count 301 10^3/uL 10^3/uL (150-400) MPV 8.7 fL fL (8.7-11.7) Neut % (Auto) 74.5 % H % (39.3-74.2) Lymph % (Auto) 21.7 % % (15.0-45.0) Gage % (Auto) 2.6 % L % (4.5-13.0) Eos % (Auto) 0.1 % L % (0.6-7.6) Baso % (Auto) 0.9 % % (0.3-1.7) Nucleat RBC Rel Count 0.0 % % (0.0-0.2) Absolute Neuts (auto) 6.92 10^3/uL H 10^3/uL (1.70-6.50) Absolute Lymphs (auto) 2.01 10^3/uL 10^3/uL (1.00-3.00) Absolute Monos (auto) 0.24 10^3/uL L 10^3/uL (0.30-0.80) Absolute Eos (auto) 0.01 10^3/uL L 10^3/uL (0.03-0.40) Absolute Basos (auto) 0.08 10^3/uL 10^3/uL (0.02-0.10) Absolute Nucleated RBC 0.00 10^3/uL 10^3/uL (0-0.01) Immature Gran % 0.2 % % (0.0-1.1) Immature Gran # 0.02 10^3/uL 10^3/uL (0.00-0.10) Sodium 142 mEq/L mEq/L (135-145) Potassium 4.6 mEq/L mEq/L (3.3-5.0) Chloride 105 mEq/L mEq/L (97-110) Carbon Dioxide 14 mEq/l L mEq/l (22-31) Anion Gap 23 mEq/L H mEq/L (6-14) BUN 9 mg/dL mg/dL (7-23) Creatinine 0.8 mg/dL mg/dL (0.6-1.0) Estimated GFR > 60 Glucose 67 mg/dL L mg/dL (70-100) Calcium 9.5 mg/dL mg/dL (8.5-10.4) Beta HCG, Qual Urine Color YELLOW Urine Appearance CLEAR Urine pH 5.0 (5.0-7.5) Ur Specific [place] 1.023 (1.002-1.030) Urine Protein 2+ H (NEGATIVE) Urine Ketones 2+ H (NEGATIVE) Urine Blood 1+ H (NEGATIVE) Urine Nitrate NEGATIVE (NEGATIVE) Urine Bilirubin NEGATIVE (NEGATIVE) Urine Urobilinogen NEGATIVE EU EU (0.2-1.0) Ur Leukocyte Esterase NEGATIVE (NEGATIVE) Urine RBC 1-3 /hpf /hpf (0-3) Urine WBC 1-3 /hpf /hpf (0-3) Ur Epithelial Cells 1+ /lpf /lpf (NONE-1+) Urine Bacteria 2+ /hpf H /hpf (NONE SEEN) Hyaline Casts 1-5 /lpf /lpf (0-1) Urine Mucus TRACE /lpf /lpf (NONE-1+) Urine Glucose NEGATIVE (NEGATIVE) Trichomonas (Wet Prep) Salicylates < 1.0 mg/dL L mg/dL (2.0-20.0) Urine Opiates Screen NEGATIVE (NEGATIVE) Acetaminophen < 10 mcg/mL L mcg/mL (10-30) Urine Barbiturates NEGATIVE (NEGATIVE) Ur Phencyclidine Scrn NEGATIVE (NEGATIVE) Ur Amphetamine Screen NEGATIVE (NEGATIVE) U Benzodiazepines Scrn NEGATIVE (NEGATIVE) Urine Cocaine Screen NEGATIVE (NEGATIVE) U Marijuana (THC) Screen NEGATIVE (NEGATIVE) Kenzie species DNA C.trachomatis RNA (TMA) Gardnerella DNA Probe N.gonorrhoeae RNA (TMA) Trichomonas DNA Probe Microbiology Results: MICROBIOLOGY 01/20/18 12:00 Vaginal - Swab Gram Stain - Final Medications Given: Discontinued Medications Lorazepam (Ativan Injection) 0.5 mg IVP EDNOW ONE Stop: 01/20/18 12:50 Last Admin: 01/20/18 12:59 Dose: 0.5 mg Ondansetron HCl (Zofran) 4 mg IVP EDNOW ONE Stop: 01/20/18 16:50 Last Admin: 01/20/18 17:12 Dose: 4 mg Ondansetron HCl (Zofran) 4 mg IVP EDNOW ONE Stop: 01/20/18 17:04 Last Admin: 01/20/18 17:12 Dose: Not Given Departure - Departure Disposition: [facility] IP Clinical Impression: Severe major depression Condition: Good Instructions: Depression (ED), Suicide Prevention (ED) Referrals: [facility],. [Clinic] - As per Instructions
--- NOTE | 2018-01-20 16:24 | CPEKG ---
Test Reason : OPEN Blood Pressure : / mmHG Vent. Rate : 108 BPM Atrial Rate : 107 BPM P-R Int : 146 ms QRS Dur : 085 ms QT Int : 341 ms P-R-T Axes : 034 036 032 degrees QTc Int : 457 ms Sinus tachycardia Low voltage, precordial leads Confirmed by Adrián Cardenas ([id number]) on 01/20/2018 4:24:13 PM Referred By: Confirmed By:Adrián Cardenas
[2018-01-20] MEDS ORDERED: ONDANSETRON 4 MG/2 ML VIAL IVP ONE ×2 (16:49→17:03)
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
--- NOTE | 2018-01-20 20:22 | ASMTTCLDSP ---
TLC Discharge Disposition Discharge Concerns/Recommendations: Notes: In consultation with [facility] ED physician,Dr Lopez ,and on-call psychiatrist, Dr Hi, both concurred that Pt appears to meet 27-65 criteria requiring psychiatric hospitalization as Pt appears to be at risk of harm to self due to a mental illness condition. Pt was given the 3N prohibited belongings list while in the ED. Was patient given the Answers: Yes Inpatient Behavioral Health Prohibited Belongings List while in the ED? For inpatient Dr Hi admission, the following psychiatrist agreed to accept patient for admission to Behavioral Health ([facility]): Type of Hold: Answers: M1/72-hour Hold Hold initiated by: Answers: Other Notes: Clinician Date Signed: 01/20/2018 08:21 PM Electronically Signed By:Nelsy Laws
--- NOTE | 2018-01-20 20:51 | PDCONSULT ---
Alumni Secretary Note: CONSULTATION NOTE CC: SI, medical mgmt HPI: 32-year-old female with a past medical history of suicidal ideations, depression, anxiety, presents with SI. She is being admitted from the ED to the [facility]. The Patient has had several attempts at suicide in the past, mostly with cutting behavior, but states she has been"unsuccessful". She has had 4 prior hospitalizations for suicidal ideations. She currently has no access to firearms or knives. She is living in a homeless halfway with her . She is intoxicated with a breath alcohol of 229, non tremulous with no signs of alcohol withdrawal. She reports a long hx of ETOH but was sober for 30 days leading up to last night at which point she binge drank. She is tolerating PO. She has no signs of WD She is not altered. She is able to provide a hx. She denies cp, sob, n/v/d, fever. PMH: Depression, anxiety, alcohol abuse, distant history of asthma Pertinent Past Surgical History: Previous bartholin gland cyst Family History: Estranged from her mother Social History: Homeless, lives in homeless halfway, , abuses alcohol, previous psychiatric admissions related to suicidal ideation PHYSICAL EXAM: General Appearance: Alert, oriented, appropriate, cooperative, NAD, well hydrated, non-toxic appearing, VSS, no hypoxia. HEENT: PEERLA, EOMI, MMM, Dentition without abnormality. Neck: Supple, nontender, no lymphadenopathy, no midline pain Respiratory: There are no retractions, lungs are clear to auscultation. Cardiac: Regular rate and rhythm, no murmurs or gallops. Gastrointestinal: Abdomen is soft, nontender, bowel sounds normal, no masses/ hernia, no rigidity, guarding or focal peritoneal findings. Genitourinary: DEFERRED Neurological: Alert and oriented x 3, CN 2-12 grossly intact Skin: Warm, dry, no rashes, no nodules on palpation. Musculoskeletal: Extremities are symmetrical, full range of motion, no tenderness, deformity, swelling, or erythema. Psychiatric: Patient is oriented X 3, there is no agitation, cooperative, not tremulous, admits to feeling suicidal but does not have a plan. Denies homicidal ideation. Denies visual and auditory hallucinations. DATA: BAL elevated ua unremarkable cbc unremarkable bmp unremarkable EKG c/w sinus tachycardia A/P #SI with hx of prior suicide attempts #Depression #anxiety disorder #PTSD #hx of cutting #homelessness #ETOH intoxication, not actively in WD #Sinus Tachycardia, likely from ETOH intoxication Plan: thank you for this consultation, we will follow along no signs of WD. Doubt that she will WD given 1 day reported use hold home meds until seen by psychiatry check TSH no e/o infection labs unremarkable monitor HR.
[2018-01-20] MEDS ORDERED: LORazepam 0.5 MG TAB PO PRN (22:43)
[2018-01-20] MEDS ORDERED: NICOTINE POLACRILEX 2 MG GUM B PRN (22:43)
[2018-01-20] MEDS ORDERED: MAGNESIUM HYDROXIDE 30 ML UDCUP PO PRN (22:43)
[2018-01-20] MEDS ORDERED: MAG HYDROX/AL HYDROX/SIMETH 30 ML UDCUP PO PRN (22:43)
--- NOTE | 2018-01-21 08:44 | ASMTBHMTP ---
Master Treatment Plan Master Treatment Plan Answers: Depressed Mood with for: Suicidal Ideation Date: 01/21/2018 Diagnosis on Admission: Posttraumatic Stress Disorder 309.81 Expected length of stay: 3-5 Days Reason for admission: Notes: Per TLC evaluation - Pt. is a 32 year old female, presently homeless, who came to the ED voluntarily due to SI without a plan. Following the mental health evaluations, this clinician placed pt on a M1 hold. Per M1, "Pt. came to [facility] due to SI. Although pt has no plan she states that she regrets surviving her last attempt and has a strong desire to kill herself". Patient's stated presenting problems: Notes: Pt. stated she "wanted to give up on everything". Pt. stated she needed help, stating she "can't literally give up on life.". Pt. stated she "tried suicide and know how hard that is". Pt. shared she brought herself to the ED. Patient's goals for treatment: Notes: "Try to get back on my fett emotionally". Patient's strengths: Notes: Intelligent and nice Identify supports outside of hospital: Notes: Discharge criteria: Notes: Suicidal ideation will resolve and patient will have a plan to safely manage recurrent suicidal ideation. Initial disposition plan/considerations: Notes: "Hopefully go back to work". Pt. stated she has [facility]. Master Treatment Plan Required Signatures Psychiatrist signature: Answers: Psychiatrist: RN on-shift signature: Answers: RN: Patient signature: Answers: Patient: Date Signed: 01/21/2018 08:44 AM Electronically Signed By:Ceci Gonsalez
[2018-01-21] MEDS: FLUoxetine 20 MG CAP PO SCH (08:50)
[2018-01-21] MEDS: GABAPENTIN 300 MG CAP PO SCH ×3 (08:50→21:09)
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
[2018-01-21] MEDS ORDERED: ONDANSETRON DISINTEGRATING 4 MG TAB PO ONE (10:00)
[2018-01-21 11:26] LABS: GC AMPLIFICATION GENPROBE NEGATIVE (NEGATIVE)
--- NOTE | 2018-01-21 12:21 | PDMN ---
Medical Necessity Medical necessity: Pt meets IP criteria per [employer] & MCG B-008-IP; est los >2 mn for eval/tx of major depression; pt is a danger to herself & on M1 hold; admit for further monitoring, safety, crisis stabilization & med management; hx SI, homelessness, alcoholism; per IP order 01/21/18
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
[2018-01-21] MEDS: OLANZapine DISINTEGR 10 MG TAB PO SCH (21:09)
[2018-01-22] MEDS: GABAPENTIN 300 MG CAP PO SCH ×3 (08:28→20:55)
[2018-01-22] MEDS: FLUoxetine 20 MG CAP PO SCH (08:28)
--- NOTE | 2018-01-22 09:56 | ASMTCMCOM ---
CM Note CM Note Notes: CC called [phone] to speak to CW at [facility] for client, etc. No answer, CC will try again so client will not lose her bed.* Date Signed: 01/22/2018 09:55 AM Electronically Signed By:Steve Reyes
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
[2018-01-22] MEDS: OLANZapine DISINTEGR 10 MG TAB PO SCH (20:55)
[2018-01-23] MEDS: FLUoxetine 20 MG CAP PO SCH (08:22)
[2018-01-23] MEDS: GABAPENTIN 300 MG CAP PO SCH ×3 (08:22→20:57)
--- NOTE | 2018-01-23 16:44 | SOAPPROG ---
SOAP Progress Note Assessment/Plan: Assessment: 32 yo woman with h/o severe alcohol dependence, anxiety, depression and multiple SA's. She recently presented to ED intoxicated with BAL of 229. She reports she had a "mini-relapse" and had been binge drinking up to 1 pint a day for 3 days prior to admission. She claims to have been sober for almost a month prior to this. CURRENT PLAN: 01/23/18 16:33 1. Patient denies SE's from meds. MD reiterated risks of adverse reactions if patient takes medications and continues to drink ETOH. She acknowledged her understanding of these risks. 2. Patient admits that the reason for her feelings of hopelessness is b/c she is homeless. 3. Patient eating and sleeping well since admission. 4. Patient denies any SI/HI. 5. Change legal status to voluntary. Subjective: Patient had visit with her who [facility]. He requested to take patient's meds with him. MD advised to hold onto patient's meds until time of discharge and decide whether it is appropriate to return meds given patient's prior h/o SA by OD. She has full bottle of hydroxyzine that was prescribed in 12/2017, but patient has not taken any of these pills despite c/o chronic anxiety, not well treated with SSRI. The most likely cause of patient's anxiety is chronic alcohol dependence and intermittent withdrawal. It's also likely that patient's anxiety is exacerbated by using Adderall. She has 5 pills left of a prescription given to her by Dr. Bravo. MD tried to explain that there are several changes patient could start making that would likely improve her ability to cope with anxiety and tolerate stress more effectively, including not drinking, not taking meds that can worsen irritability, mood and anxiety (like psychostimulants) and try interventions to address her primary problem which is chronic alcohol dependence. MD strongly encouraged patient to consider options such as substance abuse disorder IOP, [facility] individual therapy and/or group therapy with [facility] or similar addiction medicine specialist, and support group ([facility], [facility] or similar). Patient does not think this is something she needs to do, she would prefer to "take meds." Objective: Vital Signs Temp Pulse Resp BP Pulse Ox 36.8 C 90 12 116/68 97 01/23/18 14:00 01/23/18 14:00 01/23/18 14:00 01/23/18 14:00 01/23/18 14:00 MSE: Affect: Flat Mood: "OK" TP: Linear TC: Denies any SI/HI Insight/ Judgment: Poor - Time Spent With Patient Time Spent With Patient: 15" - Pending Discharge Pending Discharge Within 24 Hours: No Pending Discharge Within 48 Hours: No ICD10 Worksheet Patient Problems: Problems Problem Status Onset Severe major depression Acute Alcohol intoxication Acute Alcohol use disorder, severe, in controlled environment Acute Depression, major, severe recurrence Chronic Post traumatic stress disorder (PTSD) Chronic
[2018-01-23] MEDS: OLANZapine DISINTEGR 10 MG TAB PO SCH (20:57)
[2018-01-24 06:26] VITALS: BP 124/76
[2018-01-24] MEDS: OLANZapine 5 MG TAB PO PRN ×2 (08:51→13:50)
[2018-01-24] MEDS: GABAPENTIN 300 MG CAP PO SCH (08:51)
[2018-01-24] MEDS: FLUoxetine 20 MG CAP PO SCH (08:51)
--- NOTE | 2018-01-24 13:07 | ASMTBHDC ---
Notes Note: Notes: Pt. reports feeling "okay". Pt. stated HOC visited this weekend. Pt. stated "gabapentin hasn't worked". HORTICULTURAL FARM MANAGER notified. Pt. reports having night terrors and requested medication for. HORTICULTURAL FARM MANAGER notified. Pt. stated she is still interested in P desktop specialist help with sobriety. Pt. stated she is able to attend her home group on . Pt. provided a big book to take home. Pt. stated she would like to be discharged to [facility], who gets off work at 4pm today. Pt. stated she will need a bus ticket. Pt. denied SI, HI, AVH and paranoia. Staff report pt. sleeping 6 hours and being medication compliant. Date Signed: 01/24/2018 01:07 PM Electronically Signed By:Ceci Gonsalez
--- NOTE | 2018-01-24 14:44 | BDS ---
REASON FOR ADMISSION: From the ED note dated 01/20/2018, patient with a history of suicidal ideation, depression, anxiety, presented to the emergency department, reportedly feeling suicidal, without a plan. Patient reported several attempts of suicide in the past, mostly cutting behavior, and states she had been "unsuccessful." The patient has had 4 prior hospitalizations for suicidal ideation. The patient was admitted involuntarily on an M1 hold due to being a danger to herself. The patient was admitted for safety, crisis stabilization, and medication evaluation. ADMITTING DIAGNOSES: 1. Major depressive disorder, severe, refractory. 2. Posttraumatic stress disorder. 3. Alcohol use disorder, severe. 4. Rule out borderline personality disorder. ADMISSION PHYSICAL EXAM: Patient was seen for an Internal Medicine consultation on 01/20/2018, for medical clearance for inpatient psychiatric hospitalization and treatment. The patient was medically cleared for inpatient psychiatric hospitalization and treatment. For further details, please refer to consultation note dated 01/20/2018. ADMISSION LABS: CBC from 01/20/2018, within normal limits, except neutrophils were elevated at 74.5, monocytes were low at 2.6, eosinophils were low at 0.1, absolute neutrophils were elevated at 6.92, absolute monocytes were low at 0.24 , and absolute eosinophils were low at 0.01. BMP from 01/20/2018, within normal limits, except carbon dioxide was low at 14. Anion gap was elevated at 23. Glucose was low at 67. POC glucose on 01/21/2018, was elevated at 169. Hemoglobin A1c on 01/20/2018, was within normal limits at 5.2. Liver function tests from 01/20/2018, within normal limits, except AST was elevated at 66. Alkaline phosphatase was elevated at 141. Total protein was elevated at 83. Liver panel from 01/20/2018, within normal limits, except triglycerides were elevated at 228. Cholesterol was elevated at 252. LDL cholesterol calculated was elevated at 126. VLDL cholesterol was elevated at 46. Non-HDL cholesterol was elevated at 172. Beta hCG qualitative test from 01/20/2018, was negative. Urine from 01/20/2018: Urine protein was elevated at 2+. Urine ketones were elevated at 2+. Urine blood was elevated at 1+. Urine bacteria was elevated at 2+. Trichomonas from 01/20/2018, 2+ epithelial cells, 3+ bacteria, no clue cells seen, no Trichomonas, 1+ white blood cell elevated, no yeast. Toxicology screen from 01/20/2018, negative for all substances tested. From 01/20/2018, Kenzie species DNA was negative. C. trachomatis RNA was negative. Gardnerella DNA probe was negative. N. gonorrhoeae RNA was negative , and Trichomonas DNA probe was negative. MAJOR PROCEDURES OR TESTS: Electrocardiogram from 01/20/2018, sinus tachycardia , low voltage, precordial leads. QTc interval was 457. HOSPITAL COURSE: The most prominent symptoms and behaviors while the patient was here were the patient presented with reports of severe depression and suicidal ideation. Patient presented withdrawn, flat. Treatment modalities utilized were milieu and group therapy. Zyprexa Zydis 10 mg p.o. q.h.s. was started to target mood symptoms, was tolerated with no report of side effects and with good response. Patient requested to be restarted on Prozac, and Prozac was started at 20 mg p.o. daily for mood symptoms, was tolerated with no report of side effects. At time of discharge, patient reported she would like to discontinue Prozac as it was not that beneficial for her in the past, and patient reported good response from Zyprexa for mood instability symptoms. Gabapentin 300 mg p.o. t.i.d. was started and titrated to 400 mg p.o. t.i.d. to target anxiety symptoms, was tolerated with no report of side effects and with good response. Patient has improved considerably, with no signs of psychiatric symptoms and no psychiatric symptoms expressed at time of discharge. Patient reports she has improved since admission, states to be in stable condition, feels safe to discharge, and she contracts for safety. Patient's response to treatment was good. There were no adverse or unexpected results of treatment. The patient was safe throughout her stay, active in treatment, engaged in groups , and was appropriate with staff and other patients. Patient met with the treatment team prior to discharge to assess readiness to discharge and review discharge plan. The treatment team consensus is the patient is in stable condition, has a safe discharge plan, and is ready to discharge today. CONDITION ON DISCHARGE: Patient is in stable condition and is no longer a danger to self or others, and is not gravely disabled due to mental illness. Patient is no longer in need of inpatient level of care, and can be safely and effectively treated within the community. The patients level of risk at time of discharge is low. MSE: The patient is casually dressed and with good hygiene , and looks stated age. Patient is sitting, posture is upright, and position is relaxed. Patient appears awake, alert, and responds appropriately and reasonably during interview. Patient is engaged, relates well to interviewer, and emotional facial expression is appropriate to situation and changes appropriately with topic. Patient is cooperative, makes comfortable eye contact , and movements are voluntary, deliberate, coordinated, and smooth and even with no inappropriate movements. Patient makes laryngeal sounds effortlessly and shares conversation appropriately; pace of conversation is appropriate, and stream of talking is fluent; articulation is clear and understandable; word choice is effortless and appropriate for education level; completes sentences, occasionally pausing to think; rate and volume are appropriate for interview and setting. Patient reports mood as euthymic. Patients affect is stable with full variable range, congruent with mood, and appropriate to speech and circumstances. Patient has linear and logical thinking, with no loose associations, tangential thought, thought blocking, concrete thinking, or any other signs of formal thought disorder. Patient denies suicidal and homicidal ideation, and denies hallucinations and delusions. Patient appears to be a reliable historian with sound judgement and good insight into current condition. Patient has no apparent dysfunction in recent or remote memory noted , and no evidence of gross cognitive dysfunction noted at any point during the interview. DISCHARGE DIAGNOSES: 1. Major depressive disorder, severe, refractory. 2. Posttraumatic stress disorder. 3. Alcohol use disorder, severe. 4. Rule out borderline personality disorder. CURRENT MEDICATIONS: After reviewing options, risks and benefits with the patient, the patient agrees to continue: 1. Zyprexa 10 mg p.o. q.h.s. 2. Gabapentin 400 mg p.o. t.i.d. 3. Prazosin 1 mg p.o. q.h.s. At time of discharge, patient requests prescriptions for Zyprexa and gabapentin. Prescriptions for these medications for 30 days are provided. The prescriptions are reviewed with the patient at time of discharge to ensure accuracy and patient understanding. DISPOSITION: Patient left hospital independently and voluntarily with her and plans to return to the homeless assisted in [place] this evening. FOLLOWUP: funding coordinator reports the appropriate outpatient follow-up services have been established and outpatient appointments have been scheduled. The patient received written instructions with times and dates of outpatient follow-up appointments. The following follow-up recommendations were provided to the patient at discharge: Continue psychotropic medications as prescribed and attend appointments as scheduled. Report any side effects to a psychiatric outpatient provider, a primary care provider, or other health career development consultant. Address any questions or problems concerning the psychotropic medications with a psychiatric outpatient provider, a primary care provider, or other health career development consultant. Contact [facility] or [facility], or go to the nearest emergency room, if you are ever a danger to yourself/others, or unable to care for yourself. As soon as possible, establish a routine medication management treatment with a psychiatric provider, establish routine therapy appointments, and follow-up with a primary care provider. SUBSTANCE ABUSE BRIEF INTERVENTION: Brief intervention regarding the risks of alcohol abuse is provided to patient with goal to reduce the risk of harm that could result from the continued use of alcohol, with the general aim to investigate the problem, raise awareness of problem, develop a solution with the patient, recommend a specific change or activity, and motivate the patient toward change. Assess substance abuse behavior and give supportive advice about harm reduction, recommend a reduction in hazardous/at-risk consumption patterns, and facilitate referrals for additional specialized treatment with care transition manager. Intermediate goal is for the patient to quit an attend outpatient treatment. Intervention focus on intermediate goals to allow for more immediate success in the treatment process to keep the patient motivated. Review following with patient: Alcohol/Binge Drinking risks: short-term: injuries, violence, alcohol poisoning, risky sexual behaviors. Long-term: high blood pressure, stroke, liver disease, digestive problems, cancer, learning and memory problems, depression and anxiety, social problems, and alcohol dependence. OUTPATIENT SUBSTANCE ABUSE TREATMENT: Patient referred to outpatient provider and treatment for continued treatment related to substance abuse. PATIENT'S RESPONSE TO INTERVENTION: Patient reports she plans to continue AA meetings after discharge and will consider additional treatment including IOP and EOP. LEGAL COURSE: The patient was admitted involuntarily on an M1 hold for inpatient psychiatric hospitalization. Patient became voluntary during her stay , and patient discharged today independently and voluntarily. ATTITUDE AT TIME OF DISCHARGE: The patients attitude was positive at time of discharge, and patient reports looking forward to discharging today. The patient reports she feels safe to discharge, is no longer a danger to herself or others, is in stable condition, and contracts for safety. Patient states she will continue medications as prescribed, and establish medication management treatment with an outpatient provider after discharge. Patient reports she understands the information that has been provided to her, and she understands, accepts, and agrees to psychotropic medications. Patient describes internal protective factors as the coping skills she has learned while hospitalized here, and she plans to continue to practice these coping skills after discharge. LABS AND STUDIES: There were no pending labs or studies at time of discharge. ADVANCE DIRECTIVES: There were no advance directives on file, and patient was full code during this hospitalization. The following psychotropic medication treatment informed consent and recommendations were provided to the patient at time of discharge. Patient reports she understands, accepts, and agrees to the information that has been provided. PSYCHOTROPIC MEDICATION TREATMENT INFORMED CONSENT and RECOMMENDATIONS: Review nature of condition, diagnosis, and prognosis. Review nature and purpose of psychotropic medication treatment. Review type of psychotropic medications being prescribed. Review risk and benefits of psychotropic medication treatment. Review probable length of time will need to take medications. Review risk and benefits of not undergoing psychotropic medication treatment. Review alternative treatments to psychotropic medications. Review psychotropic medications contraindications, side effects, and importance of reporting any side effects to a psychiatric provider, primary care provider, or other health career development consultant. Review importance of her asking a psychiatric provider or primary care provider any questions or problems concerning the psychotropic medications. Review importance of reporting to a psychiatric provider, primary care provider, or other health career development consultant if she plans to or becomes . Review safety plan and the importance to contact [facility] or [facility] , or go to the nearest emergency room, if ever a danger to yourself/others, or unable to care for yourself. Recommend upon discharge to establish routine medication management treatment with a psychiatric provider, establish routine therapy appointments, and follow-up with a primary care provider. Verify patient understands, accepts, and agrees to the information that has been provided. SUICIDE ASSESSMENT FIVE-STEP EVALUATION AND TRIAGE (1) RISK FACTORS: (a) Suicidal behavior: reports history of cutting/self-injurious behavior; history of 4 attempts (b) Current/past psychiatric disorders: Major Depression; Alcohol Use Disorder (c) Gutiérrez symptoms: none expressed or exhibited at time of discharge (d) Family history: none (e) Precipitants/Stressors/Interpersonal: none (f) Change in treatment: discharge from psychiatric hospital (g) Access to firearms: none (2) PROTECTIVE FACTORS: (a) Internal: coping skills learned while hospitalized (b) External: and future (3) SUICIDAL INQUIRY: (a) Ideation: none (b) Plan: none (c) Behaviors: none; patient was safe throughout stay with no suicidal or parasuicidal behaviors (d) Intent: none (4) RISK LEVEL: Low: modifiable risk factors, strong protective factors; no suicidal or self-injurious ideation. Intervention: treatment plan to reduce symptoms including medications and therapy, provided emergency/crisis numbers, and established follow-up plan. /[id number]/[id number]
== END 2018-01-24 15:11 | disposition home or self-care (01) | DRG 751 ==
LOC: BBEH 22:05
PROVIDERS: ADMIT Psychiatry & Neurology Psychiatry; ATTEND Registered Nurse
DX: F32.2 Major depressive disorder, single episode, severe without psychotic features (principal); R45.851 Suicidal ideations; F43.10 Post-traumatic stress disorder, unspecified; F41.9 Anxiety disorder, unspecified; F10.229 Alcohol dependence with intoxication, unspecified; Z59.0 Homelessness
CPT/HCPCS: 80305; 96374; G0480; J2060; J2405